=== PATIENT | female | born 1970 | race Caucasian/White ===

== ENCOUNTER 2017-05-09 19:32 | Emergency (ER) | payer OTHER ==
[~2017-05-09] VITALS: Ht 165.1 cm; Wt 102.5 kg
[2017-05-09 19:51] VITALS: Ht 165.1 cm; Wt 102.5 kg
[2017-05-09] MEDS ORDERED: ACET325T33 PO (22:31)
[2017-05-09] MEDS ORDERED: AZIT250T94 PO (22:31)
[2017-05-09 22:54] VITALS: BP 158/72; PULSE 70; RESP 17; TEMP 99.7
--- NOTE | 2017-05-14 08:26 | ERA ---
ER Documentation Chief Complaint Date/Time DATE: 05/14/17 TIME: 08:22 Chief Complaint headache x 3 days -n/v HPI This is a 38-year-old female presenting with 2 weeks of headache and 1 day of nausea vomiting. 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 Describes the headache as tight and 2 out of 10 on the pain scale. Refuses pain medications at this time. Patient has not taken any medications to relieve the symptoms. Denies fever, worst headache of life, thunderclap headache, meningismus, temporal pain, eye pain, auras, change in vision, or new medications. Review of the nursing notes showed headache 3 days with nausea and vomiting at the first from given history to me of headache 14 days of nausea vomiting 1 day. Upon reevaluation the patient states again that the headache is been lasting for 14 days. ROS All systems reviewed and are negative except as per history of present illness. Medications Home Meds Active Scripts Azithromycin* (Zithromax*) 250 Mg Tablet, 250 MG PO .ZPACK DIRECTED, #6 TAB TAKE 500 MG (2 TABS) THE FIRST DAY THEN 250 MG (1 TAB) DAYS 2-5 Prov:LAURA BREAUX PA-C 05/09/17 Acetaminophen* (Tylenol*) 325 Mg Tablet, 1 TAB PO Q6 Y for PAIN AND OR ELEVATED TEMP, #20 TAB Prov:LAURA BREAUX PA-C 05/09/17 Allergies Allergies: Coded Allergies: No Known Allergy (Unverified , 05/09/17) PMhx/Soc Hx Miscellaneous Medical Probl: Yes (DM) Hx Alcohol Use: No Hx Substance Use: No Hx Tobacco Use: No Smoking Status: Never smoker Physical Exam Physical Exam Const: Morbidly obese. Well-nourished. In no acute distress and able to smile Head: Normocephalic, Atraumatic. Eyes: Normal Conjunctiva. PERRLA, EOMI bilaterally. No nystagmus. Otoscope unremarkable and cup-to-disc ratio within normal limits. Ears: Normal External Ears, EACs clear, TM normal bilaterally without erythema. Nose: Normal nose without discharge, septal deviation, or sinus tenderness. Oral: No oral edema visualized. Mucous membranes moist and pink. Neck: No cervical lymphadenopathy, masses or goiter palpated. Full range of motion. Supple. Trachea midline. ~ No meningismus. Pulm: Good air movement in upper and lower respiratory tracts. No dyspnea, stridor, tripoding or drooling. Clear to auscultation bilaterally. Cardio: Regular rate and rhythm; No murmurs, gallops or rubs auscultated. No JVD grossly observed. Radial and posterior tibial pulses 2+ bilaterally. No cyanosis. Capillary refill less than 2 seconds. Abd: Soft, non tender, non distended. No guarding, masses. Normal bowel sounds. No McBurney's point tenderness. MS: Normal motor strength, normal tone with gross examination. Skin: No petechiae or rashes. No ulcer, induration, jaundice. Good turgor. Back: No midline, flank or CVA tenderness. Ext: No cyanosis, or edema. Normal movement of all extremities grossly observed. Neur: Awake, alert and oriented x3. Neurovascularly intact bilaterally. Psych: Normal Mood and Affect. Procedures/MDM Patient presents with chief complaint of headache 14 days nausea and vomiting 1 day. Refuses pain medications at this time. Patient is also complaining of dry cough with further evaluation. The patient is in no acute distress and smiling. Patient's physical exam only revealed sinus tenderness in the maxillary region bilaterally. Physical exam was otherwise unremarkable. At this time most likely diagnosis is acute bacterial sinusitis. Since there is a significant duration of symptoms we will go ahead and prescribe the patient antibiotics as well as decongestant for further symptom relief. At this time, I have little suspicion for subarachnoid hemorrhage or other intracranial bleeds, meningitis, temporal arteritis, glaucoma, hypertensive urgency/emergency, cerebral ischemia, arterial dissection, brain abscess/tumor, pain secondary to trauma, septicemia, or other intracranial bleeds; appendicitis, intestinal ischemia, pancreatitis, cholangitis, mechanical obstruction or other acute GI pathologies; pyelonephritis, pneumonia, among others. I have spoke with the patient regarding their condition and future management. They have verbally responded that they understand their status and treatment plan. The patients vitals are stable, and their current condition is appropriate for discharge. The patient will be given discharge instructions with return precautions. Departure Diagnosis: Primary Impression: Acute bronchitis Qualified Code: J20.9 - Acute bronchitis, unspecified organism Additional Impressions: Acute bacterial sinusitis Headache Qualified Code: G44.209 - Acute non intractable tension-type headache Condition: Stable Patient Instructions: Self-Care for Headaches Additional Instructions: Rosanna un seguimiento con gross PCP dentro de los prximos 1-3 alan para angie evaluaci n ms completa y angie posible derivacin a un especialista. Devuelva el departamento de emergencia inmediatamente si los sntomas empeoran o cambian. Si tiene alguna pregunta con respecto a los medicamentos, consulte con gross farmac utico o con nosotros antes de salir. Si se producen reacciones adversas mientras margaret ussan medicamentos, suspenda el tratamiento y regrese inmediatamente al servicio de urgencias. Metaline susan medicamentos segn las indicaciones y complete el curso completo del tratamiento. LAURA BREAUX PA-C May 14, 2017 08:26
== END 2017-05-09 22:55 | disposition home or self-care (01) ==
LOC: FTE 19:32
DX: J20.9 Acute bronchitis, unspecified (principal); J01.00 Acute maxillary sinusitis, unspecified; G44.209 Tension-type headache, unspecified, not intractable; E11.9 Type 2 diabetes mellitus without complications
CPT/HCPCS: 99283

== ENCOUNTER 2019-07-02 12:04 | Emergency (ER) | payer OTHER ==
[~2019-07-02] VITALS: Ht 162.6 cm; Wt 93.6 kg
[~2019-07-02 12:04] MED LIST: ACET325T33 PO; AZIT250T PO; CYCL10TA7 PO; IBUP-1542 PO
[2019-07-02 12:10] VITALS: Ht 162.6 cm; Wt 93.6 kg
--- NOTE | 2019-07-02 12:21 | EN ---
Date/Time of Note Date/Time of Note DATE: 07/02/19 TIME: 12:20 ER Progress Note [id number]-[id number]-old female with 1 day history of pain in the neck with spasm. Limited exam suggestive of musculoskeletal etiology. May benefit from symptomatic treatment/ toradol in ED 2. VALORIE PEDRAZA MD Jul 02, 2019 12:21
[2019-07-02] MEDS ORDERED: KETOROLAC 30 MG INJ IM STA (13:28)
[2019-07-02] MEDS ORDERED: DIAZEPAM 5 MG TAB PO ONE (13:30)
--- NOTE | 2019-07-02 15:00 | ERD ---
ER Documentation Chief Complaint Chief Complaint HEADACHE, NUMBNESS ON LEFT SIDE OF FACE X2 DAYS, NO NEURO-DEFICITS HPI Patient is a 48-year-old female who presents with pain in her head and neck. It starts posteriorly and comes around forward. It started yesterday. She is also had some paresthesias on the left side of her face. No chest pain palpitations or shortness of breath. No upper or lower extremity weakness. No slurred speech. No dizziness. Has not taken any medications for her symptoms. No trauma. ROS All systems reviewed and are negative except as per history of present illness. Medications Home Meds Active Scripts Ibuprofen* (Motrin*) 600 Mg Tab, 600 MG PO Q6, #30 TAB Prov:PALAK DUDLEY PA-C 07/02/19 Cyclobenzaprine Hcl* (Cyclobenzaprine Hcl*) 10 Mg Tablet, 10 MG PO BID, #15 TAB Prov:PALAK DUDLEY PA-C 07/02/19 Azithromycin* (Zithromax*) 250 Mg Tablet, 250 MG PO .ZPACK DIRECTED, #6 TAB TAKE 500 MG (2 TABS) THE FIRST DAY THEN 250 MG (1 TAB) DAYS 2-5 Prov:LAURA BREAUX PA-C 05/09/17 Acetaminophen* (Tylenol*) 325 Mg Tablet, 1 TAB PO Q6 PRN for PAIN AND OR ELEVATED TEMP, #20 TAB Prov:LAURA BREAUX PA-C 05/09/17 Allergies Allergies: Coded Allergies: No Known Allergy (Unverified , 05/09/17) PMhx/Soc History of Surgery: Yes (Megan,Appendectomy, Hysterectomy, C/S) Anesthesia Reaction: No Hx Miscellaneous Medical Probl: Yes (Thyroid issue) Hx Alcohol Use: No Hx Substance Use: No Hx Tobacco Use: No Smoking Status: Never smoker FmHx Family History: No diabetes Physical Exam Vitals Vital Signs Date Temp Pulse Resp B/P (MAP) Pulse Ox O2 O2 Flow FiO2 Time Delivery Rate 07/02/19 98.1 66 17 164/70 99 12:10 (101) Physical Exam INITIAL VITAL SIGNS: Reviewed by me GENERAL: Awake, alert and oriented x 4, well appearing, nontoxic, speaking in full sentences. No acute distress HEAD: Atraumatic NECK: Supple. No masses. Full range of motion. No meningismus. No midline tenderness. EYES: EOMI. PERRL. . THROAT: No tonilar erythema or edema. No exudates. Uvula midline. No kissing tonsils. RESPIRATORY: Clear to auscultation bilaterally. Symmetric chest wall rise. No wheezing or rales. No accessory muscle use. CV: Regular rate and rhythm. No murmurs, rubs, or gallops. Neuro: M/S: Alert and oriented Face: EOMI, face and pharynx with normal sensation and function Motor: Normal strength throughout Sensation: Normal sensation throughout Speech: Normal Cerebel: Normal coordination Normal gait Normal finger to nose Results 24 hrs Laboratory Tests Test 07/02/19 13:51 POC Beta HCG, Qualitative NEGATIVE Current Medications Medications Dose Sig/Nico Start Time Status Last (Trade) Ordered Route PRN Stop Time Admin Dose Reason Admin Ketorolac 30 mg ONCE STAT 07/02/19 DC 07/02/19 Tromethamine IM 13:28 13:53 (Toradol) 07/02/19 13:30 Diazepam 5 mg ONCE ONCE 07/02/19 DC 07/02/19 (Valium) PO 13:30 13:52 07/02/19 13:31 Procedures/MDM Patient has head and neck pain. There is no trauma. No fever. She also states she had paresthesias on the left side. She is however neurologically intact. There is no facial droop. No slurred speech. No upper or lower extremity weakness. She is awake alert and oriented. Her CT is negative. She was given Toradol and Valium here with improvement and discharged with ibuprofen and Flexeril. Patient counseled regarding my diagnostic impression and care plan. Prior to discharge all questions answered. Pt agrees with treatment plan and understands strict return precautions. Pt is instructed to follow up with primary care provider within 24-48 hours. Precautionary instructions provided in cluding instructions to return to the ER if not improving or for any worsening or changing symptoms or concerns. Departure Diagnosis: Primary Impression: Headache Additional Impression: Cervical strain Condition: Stable Patient Instructions: Self-Care for Headaches Additional Instructions: Llame al doctor SHARLA y jurgen angie ANTOLIN PARA DENTRO DE 1-2 ENAMORADO.Dgale a la secretaria que nosotros le instruimos hacer esta antolin.Avise o llame si gross condicin se empeora antes de la antolin. Regresa aqui si peor o no mejor. PALAK DUDLEY PA-C Jul 02, 2019 15:00
[2019-07-02 15:17] VITALS: BP 146/71; PULSE 64; RESP 18
== END 2019-07-02 15:18 | disposition home or self-care (01) ==
LOC: FTE 12:04
DX: S16.1XXA Strain of muscle, fascia and tendon at neck level, initial encounter (principal); R51 Headache; X58.XXXA Exposure to other specified factors, initial encounter; Y92.9 Unspecified place or not applicable
CPT/HCPCS: 70450; 81025; 96372; J1885; Z7502; Z7610